=== PATIENT | female | born 1945 | race Caucasian/White ===

== ENCOUNTER 2016-08-12 12:39 | Inpatient (IN) | payer OTHER, MEDICARE ==
[~2016-08-12] VITALS: Ht 160 cm; Wt 57.2 kg
[2016-08-23] MEDS ORDERED: ALEN1TAB48 PO (11:34)
[2016-08-23] MEDS ORDERED: VITA200013 PO (11:34)
[2016-08-23] MEDS ORDERED: SIMV40TA PO (11:34)
[2016-08-23] MEDS ORDERED: CALC500T17 PO (11:34)
[2016-08-23] MEDS ORDERED: LEVO75TA3 PO (11:34)
[2016-09-07 05:44] LABS: BLOOD, URINE SMALL (NEG); GLUCOSE,URINE NEG (NEG); KETONE, URINE NEG (NEG); MUCUS URINE FEW /lpf (OCC); NITRITE,URINE NEG (NEG); SQUAMOUS EPITHELIAL CELL URINE <1 /hpf (0-5); URINE COLOR YELLOW (YELLW/STRAW)
[2016-09-07] MEDS ORDERED: VANCOMYCIN 1000 MG/NS 250 ML (for <70 kg) IV SCH ×2 (05:45)
[2016-09-07] MEDS ORDERED: ceFAZolin 2 GM PREMIX 50 ML IV SCH (05:45)
[2016-09-07] MEDS ORDERED: METOPROLOL TARTRATE 25 MG TAB PO PRN (05:45)
[2016-09-07] MEDS ORDERED: SODIUM CHLORID 0.9% 500 ML IV SCH (05:45)
[2016-09-07] MEDS ORDERED: INSULIN HUMAN REGULAR 1,000 UNITS/10 ML VIAL SQ PRN (05:45)
[2016-09-07] MEDS: LACTATED RINGER'S 1000 ML IV SCH (05:45)
[2016-09-07 05:52] VITALS: BP 140/82; PULSE 66; RESP 16; TEMP 97.8; O2SAT 98
[2016-09-07 06:34] LABS: COMMENT (UR) CULT NOT INDICATED; CULTURE IF INDICATED CULT NOT INDICATED
[2016-09-07] MEDS ORDERED: GENTAMICIN SULFATE 80 MG/2 ML VIAL ONE (06:50)
[2016-09-07] MEDS ORDERED: ceFAZolin INJ 1,000 MG VIAL ONE (07:01)
[2016-09-07] MEDS ORDERED: FAMOTIDINE 20 MG/2 ML VIAL ONE (07:02)
[2016-09-07] MEDS ORDERED: MIDAZOLAM HCL 2 MG/2 ML VIAL ONE (07:02)
[2016-09-07] MEDS ORDERED: ACETAMINOPHEN 1000 MG/100 ML VIAL IV ONE (07:02)
[2016-09-07] MEDS ORDERED: DEXAMETHASONE SOD PHOS 4 MG/ML VIAL ONE (07:02)
[2016-09-07] MEDS ORDERED: TRANEXAMIC ACID IV SCH (07:30)
[2016-09-07] MEDS ORDERED: SODIUM CHLORIDE 0.9% IV SCH (07:30)
[2016-09-07] MEDS ORDERED: EXPAREL PERI-ARTICULAR INJECTION (TOTAL VOL. 60 ML) P-ARTICULR SCH ×2 (07:30)
[2016-09-07] MEDS ORDERED: GENTAMICIN SULFATE 80 MG/2 ML VIAL IRRIGATION ONE (07:45)
[2016-09-07] MEDS ORDERED: NALOXONE HCL 0.4 MG/ML AMP IV PRN (09:15)
[2016-09-07] MEDS ORDERED: MORPHINE SULFATE 4 MG/ML INJ IV PUSH PRN (09:15)
[2016-09-07] MEDS ORDERED: SODIUM CHLORIDE 0.9% FLUSH 5 ML FLUSH IVF PRN (09:15)
[2016-09-07] MEDS ORDERED: ONDANSETRON HCL 4 MG/2 ML VIAL IVP PRN (09:15)
[2016-09-07] MEDS ORDERED: ACETAMINOPHEN/HYDROcodone 325 MG/10 MG TAB PO PRN (09:15)
[2016-09-07] MEDS ORDERED: Post-op Orders (for Pharmacy) MISC XX ONE (09:15)
--- NOTE | 2016-09-07 09:15 | PD.OP ---
cc: Patric Marks MD Operative Report Date of Surgery: Sep 07, 2016 Preoperative Diagnosis: Severe right hip osteoarthritis Postoperative Diagnosis: Procedure: Right total hip arthroplasty via anterior approach Anesthesia: Gen. Surgeon: Patric Marks Vba Developer(s): BERTHA Arango PA-C The surgical procedure was assisted by my physician elementary assistant teacher. My P.A. presence was necessary throughout this case for the manipulation and positioning of the surgical extremity. My P.A. was assisting me throughout the duration of this procedure. The skill set of a physician elementary assistant teacher was medically necessary to complete this procedure. During the surgical case the technical support specialist was working at the back table and the physician elementary assistant teacher was directly assisting me. Operation and Findings: PLAN OF ACTIVITY Weight bear as tolerated. DRAINS: 7-mm JAY drain. IMPLANTS USED DePuy Corail size 10 collared stem with a size [48] [place]boro Gription cup and a [32+1.5] ceramic Biolox ceramic head. DETAILS OF PROCEDURE: This patient has a long history of hip pain. Patient was found to have severe osteoarthritis. The patient had radiographic evidence of joint space narrowing with [id number] arthritis and osteophytes around the acetabulum as well as the femoral head. There was also some cystic changes. The patient failed conservative treatment with pain medications, anti-inflammatories, physical therapy, assistive devices including a cane, as well as therapeutic injection of the hip. Patient's hip arthritis was limiting his ability to ambulate and perform activities of daily living. The patient wished to proceed with surgery and informed consent was obtained. Operative site was marked. I discussed both posterior approach and anterior approach with the patient and decision was made for anterior approach. Patient was brought to OR and placed on OR table. IV sedation and general anesthesia was administered by anesthesiologist. Patient positioned on a Yelena table and was given IV antibiotics. Time-out procedure was performed. The hip and thigh were prepped with alcohol followed by Hibiclens. The thigh was draped in the usual sterile fashion. Clean Air Suite was used for this procedure. The procedure began with a 5-inch incision over the anterolateral thigh. Subcutaneous tissue was dissected with Bovie. The fascia over the tensa fasciae latae was incised. Care was taken to avoid injury to the lateral femoral cutaneous nerve. The tensor muscle was retracted laterally. Sartorius was retracted medially. Retractors were now placed. The reflected head of the rectus is now elevated. A capsulotomy was performed over the anterior head capsule. Sutures were placed to help retract the capsule. At this point the femoral head and neck were identified. With soft tissue protected, oscillating saw was used to make a cut through the femoral neck, the femoral head was now removed. At this point attention was turned to preparation of the acetabulum. The labrum was excised. The acetabulum was sequentially reamed up to size [48]. A Carrboro cup was now placed. Fluoroscopy was used to aid in identification of appropriate version. Cup was fully impacted and found to have excellent fit. Hole eliminator was now placed. The liner was now impacted into the cup. At this point the hip was externally rotated. A hook was placed around the proximal femur. The capsule was released off the lateral and medial femur. The hip was now extended and adducted. Retractors were placed around the proximal femur to allow for exposure. A box osteotome was used to remove the lateral cortex of the femoral neck. A broach was used to help lateralize the prosthesis. Canal finder was used to create a path down the canal. Next, the canal was sequentially broached up to size [10]. This was found to be an excellent fit. Calcar planer was placed. A standard head was placed, and the hip was reduced. The hip was found to have excellent stability with good range of motion. The leg lengths were measured under fluoroscopy and found to be equal compared to preoperatively. Trial broach was removed. The Corail stem was opened. Stem was fully impacted into the proximal femur in appropriate version. The femoral head was placed. The hip was again reduced. Fluoroscopy confirmed excellent alignment of prosthesis. The wound was thoroughly irrigated and capsule was closed with #1 Vicryl. The fascia over the tensor fasciae muscle was closed with #1 Vicryl, subcutaneous tissue was closed with 3-0 Vicryl and the skin was closed with alda and Dermabond skin closure. The capsule layers were injected with a mixture of saline and bupivicaine. Dressings were applied. The patient was transferred to Recovery Room in stable condition. Partic Marks MD Sep 07, 2016 09:15
[2016-09-07] MEDS ORDERED: HYDR-3366 PO (09:36)
[2016-09-07] MEDS ORDERED: XARE10TA PO (09:36)
[2016-09-07] MEDS ORDERED: fentaNYL CITRATE 250 MCG/5 ML AMP ONE (09:36)
--- NOTE | 2016-09-07 09:38 | HHI.FF ---
Face to Face Verification Diagnosis: (1) Status post right hip replacement Physical Therapy Gait training Hip: Total hip, Protocol: Right, Posterior hip precautions, Progress to weight bearing Right LE Weight Bearing: WB as tolerated Left LE Weight Bearing: WB as tolerated Nursing Dressing Changes: Daily dressing change, Xeroform (begin adding Xeroform daily starting 09/20/2016), Coverderm/Primapore I have seen patient Kathy Villatoro on 09/07/16. My clinical findings support the need for the requested home health care services because: Limited ability to care for self I certify that my clinical findings support that this patient is homebound because: Post-op weakness Abraham Bartholomew Jr. Sep 07, 2016 09:38
[2016-09-07] MEDS ORDERED: TRANEXAMIC ACID INJ 1,000 MG in SODIUM CHLORIDE 0.9% INJ 100 ML IV ONE (10:00)
[2016-09-07] MEDS: LACTATED RINGER'S 1000 ML INJ 1,000 ML IV SCH (10:00)
--- NOTE | 2016-09-07 10:22 | RADRPT ---
EXAM DATE/TIME: 09/07/2016 09:39 [facility] COMPARISON: No previous studies available for comparison. INDICATIONS : Post op left hip surgery. MEDICAL HISTORY : None. SURGICAL HISTORY : None. ENCOUNTER: Initial ACUITY: 1 day PAIN SCORE: 0/10 LOCATION: Bilateral hip and pelvis FINDINGS: A lateral view of the right hip with AP pelvis was obtained. Right total hip prosthesis in place. Al ignment within normal limits. No evidence of fracture. Surgical drain exchange alda noted. Right-s ided sacral neural stimulator noted. CONCLUSION: Postoperative appearance of right total hip prosthesis. Sampson Aguilera MD on September 07, 2016 at 10:19 Board Certified Radiologist. This report was verified electronically.
[2016-09-07] MEDS ORDERED: DO NOT ADM ANY ANTICOAGULANT DRUGS XX PRN (10:30)
[2016-09-07] MEDS: KETOROLAC TROMETHAMINE 30 MG/ML (IVP) VIAL IV PUSH SCH (11:05)
[2016-09-07 12:00] VITALS: BP 105/54; PULSE 77; RESP 16; TEMP 98; O2SAT 99
[2016-09-07] MEDS: ceFAZolin 2 GM PREMIX 50 ML IV SCH ×2 (12:34→18:16)
[2016-09-07] MEDS ORDERED: PROPOFOL 200 MG/20 ML AMP IV ONE (13:47)
[2016-09-07] MEDS ORDERED: ePHEDrine/NS 25 MG/5 ML SYR IV ONE (13:48)
[2016-09-07] MEDS ORDERED: LACTATED RINGER'S 1000 ML INJ 1,000 ML IV ONE (13:48)
[2016-09-07] MEDS ORDERED: ONDANSETRON HCL 4 MG/2 ML VIAL IV PUSH ONE (13:48)
[2016-09-07] MEDS ORDERED: PHENYLEPH/NS 1000 MCG/10 ML SYR IV ONE (13:48)
[2016-09-07] MEDS ORDERED: NEOSTIGMINE 3 MG/3 ML SYR IV ONE (13:48)
[2016-09-07 16:00] VITALS: BP 97/50; PULSE 80; RESP 16; TEMP 97.9; O2SAT 97
--- NOTE | 2016-09-07 16:09 | RADRPT ---
EXAM DATE/TIME: 09/07/2016 07:32 [facility] COMPARISON: No previous studies available for comparison. INDICATIONS : Right total hip replacement. MEDICAL HISTORY : None. SURGICAL HISTORY : None. ENCOUNTER: Initial ACUITY: 1 day PAIN SCORE: 10/10 LOCATION: Right hip. FINDINGS: Examination of the hip demonstrates total hip arthroplasty in satisfactory position. The alignment is anatomic. CONCLUSION: Post surgical changes as above. Nahum Bullard MD on September 07, 2016 at 16:07 Board Certified Radiologist. This report was verified electronically.
[2016-09-07] MEDS: VANCOMYCIN INJ 1,000 MG in SODIUM CHLOR 0.9% 250 ML INJ 250 ML IV SCH (18:16)
[2016-09-07 19:15] VITALS: BP 96/55; PULSE 77; RESP 17; TEMP 97.5; O2SAT 95
[2016-09-07 20:28] VITALS: O2SAT 96
[2016-09-07] MEDS: PRAVASTATIN SOD 80 MG TAB PO SCH (21:00)
[2016-09-07] MEDS: SODIUM CHLORIDE 0.9% FLUSH 5 ML FLUSH IVF SCH (21:04)
[2016-09-07] MEDS: CHLORHEXIDINE GLUCONATE 4% SOLN 120 ML BTL TOPICAL SCH (21:36)
[2016-09-08] MEDS: LACTATED RINGER'S 1000 ML IV SCH ×2 (00:20→21:58)
[2016-09-08] MEDS: KETOROLAC TROMETHAMINE 30 MG/ML (IVP) VIAL IV PUSH SCH ×3 (00:21→22:10)
[2016-09-08] MEDS: ceFAZolin 2 GM PREMIX 50 ML IV SCH (00:21)
[2016-09-08] MEDS: LACTATED RINGER'S 1000 ML INJ 1,000 ML IV SCH ×3 (00:22→20:59)
[2016-09-08 00:45] VITALS: BP 91/55; PULSE 72; RESP 16; TEMP 96.2; O2SAT 96
[2016-09-08 03:25] VITALS: BP 98/52; PULSE 70; RESP 16; TEMP 96.6; O2SAT 96
[2016-09-08] MEDS: VANCOMYCIN INJ 1,000 MG in SODIUM CHLOR 0.9% 250 ML INJ 250 ML IV SCH (05:44)
[2016-09-08] MEDS: ACETAMINOPHEN/HYDROcodone 325 MG/7.5 MG TAB PO PRN ×2 (05:45→19:48)
[2016-09-08] MEDS: LEVOTHYROXINE SODIUM 75 MCG TAB PO SCH (05:49)
[2016-09-08 05:55] LABS: HEMATOCRIT 25.8 % (35.0-46.0); REVIEW FLAG FINAL
--- NOTE | 2016-09-08 06:39 | PD.ORT.PN ---
Subjective Subjective Remarks Resting comfortably and is progressed extremely well since surgery Objective Vitals Vital Signs Date Time Temp Pulse Resp B/P Pulse Ox O2 Delivery O2 Flow Rate FiO2 09/08/16 03:25 96.6 70 16 98/52 96 09/08/16 00:45 96.2 72 16 91/55 96 09/07/16 20:28 96 21 09/07/16 19:15 97.5 77 17 96/55 95 09/07/16 18:55 Room Air 09/07/16 16:00 97.9 80 16 97/50 97 09/07/16 12:00 98.0 77 16 105/54 99 09/07/16 11:50 Nasal Cannula 2.00 09/07/16 10:45 97.4 77 12 97/50 98 Nasal Cannula 2 09/07/16 10:30 66 12 91/41 97 Nasal Cannula 3 09/07/16 10:15 69 12 89/45 95 Nasal Cannula 3 09/07/16 10:00 74 14 83/43 96 Nasal Cannula 3 09/07/16 09:45 88 14 93/49 98 Nasal Cannula 3 09/07/16 09:29 97.4 84 14 108/55 98 Nasal Cannula 3 I/O 09/07/16 09/07/16 09/07/16 09/08/16 09/08/16 09/08/16 07:00 15:00 23:00 07:00 15:00 23:00 Intake Total 2742 ml 1287 ml 1716 ml Output Total 780 ml 680 ml 1710 ml Balance 1962 ml 607 ml 6 ml Intake Oral 480 ml 960 ml IV Total 842 ml 807 ml 756 ml Other 1900 ml Output Urine Total 325 ml 650 ml 1700 ml Drainage Total 105 ml 30 ml 10 ml Estimated Blood Loss 350 ml # Bowel Movements 0 0 Result Diagram: 09/08/16 0500 Imaging Last 24 hours Impressions Hip and Pelvis X-Ray 09/07/16 0904 Signed Impressions: Service Date/Time: Wednesday, September 07, 2016 09:39 - CONCLUSION: Postoperative appearance of right total hip prosthesis. Sampson Aguilera MD Objective Remarks Right lower extremity: Clean dry dressings intact. Drain removed. Minimal swelling. No pain with knee or ankle range of motion. Distally intact sensation good capillary refills with strong dorsiflexion and plantar flexion foot Assessment & Plan Assessment and Plan Right total hip arthroplasty anterior approach POD 1 Physical therapy twice daily weightbearing as tolerated Daily dressing changes with Primapore and starting POD 10 and Xeroform daily Lovenox then convert to Xarelto after discharge Discharge to home with home health care tomorrow if cleared by physical therapy SCDs and Maycol walker Follow-up with Dr. Marks or PA in 2 weeks Abraham Bartholomew Jr. Sep 08, 2016 06:39
[2016-09-08 08:00] VITALS: BP 97/52; PULSE 81; RESP 18; TEMP 97.2; O2SAT 92
[2016-09-08] MEDS: CALCIUM CARBONATE 1.25 GM (CA 500 MG) TAB PO SCH (09:17)
[2016-09-08] MEDS: ENOXAPARIN SODIUM 40 MG/0.4 ML SYRINGE SQ SCH (09:17)
[2016-09-08] MEDS: SODIUM CHLORIDE 0.9% FLUSH 5 ML FLUSH IVF SCH ×2 (09:17→19:42)
[2016-09-08] MEDS: CHOLECALCIFEROL (VIT D3) 1000 UNIT TAB PO SCH (09:17)
[2016-09-08 12:00] VITALS: BP 97/46; PULSE 71; RESP 18; TEMP 96.5; O2SAT 100
[2016-09-08 16:50] VITALS: BP 98/44; PULSE 76; RESP 18; TEMP 97.2; O2SAT 99
[2016-09-08] MEDS: PRAVASTATIN SOD 80 MG TAB PO SCH (19:42)
[2016-09-08] MEDS: DOCUSATE SODIUM 100 MG CAP PO SCH (19:42)
[2016-09-08 19:45] VITALS: BP 105/47; PULSE 85; RESP 18; TEMP 97.7; O2SAT 96
[2016-09-08] MEDS: CHLORHEXIDINE GLUCONATE 4% SOLN 120 ML BTL TOPICAL SCH (21:58)
[2016-09-09 00:45] VITALS: BP 85/42; PULSE 76; RESP 17; TEMP 96.8; O2SAT 93
[2016-09-09] MEDS: LEVOTHYROXINE SODIUM 75 MCG TAB PO SCH (04:18)
[2016-09-09 04:30] VITALS: BP 89/49; PULSE 79; RESP 16; TEMP 96.4; O2SAT 93
[2016-09-09 04:32] VITALS: BP 98/54
--- NOTE | 2016-09-09 06:31 | PD.ORT.PN ---
Subjective Subjective Remarks POD 2 s/p right LINDSAY doing well. pain controlled. out of bed on her own and ambulating with a walker Objective Vitals Vital Signs Date Time Temp Pulse Resp B/P Pulse Ox O2 Delivery O2 Flow Rate FiO2 09/09/16 04:32 98/54 09/09/16 04:30 96.4 79 16 89/49 93 09/09/16 00:45 96.8 76 17 85/42 93 09/08/16 19:45 97.7 85 18 105/47 96 09/08/16 18:56 Room Air 09/08/16 16:50 97.2 76 18 98/44 99 09/08/16 12:00 96.5 71 18 97/46 100 09/08/16 08:00 97.2 81 18 97/52 92 I/O 09/08/16 09/08/16 09/08/16 09/09/16 09/09/16 09/09/16 07:00 15:00 23:00 07:00 15:00 23:00 Intake Total 1716 ml 960 ml 720 ml Output Total 1710 ml Balance 6 ml 960 ml 720 ml Intake Oral 960 ml 960 ml 720 ml IV Total 756 ml Output Urine Total 1700 ml Drainage Total 10 ml # Voids 3 3 # Bowel Movements 0 0 0 Result Diagram: 09/08/16 0500 Imaging Last 24 hours Impressions Hip and Pelvis X-Ray 09/07/16 0904 Signed Impressions: Service Date/Time: Wednesday, September 07, 2016 09:39 - CONCLUSION: Postoperative appearance of right total hip prosthesis. Sampson Aguilera MD Objective Remarks Right lower extremity: Clean dry dressings intact. Drain removed. Minimal swelling. No pain with knee or ankle range of motion. Distally intact sensation good capillary refills with strong dorsiflexion and plantar flexion foot Assessment & Plan Assessment and Plan Right total hip arthroplasty anterior approach POD 2 Physical therapy twice daily weightbearing as tolerated Daily dressing changes with Primapore and starting POD 10 and Xeroform daily Lovenox then convert to Xarelto after discharge Discharge to home with home health care today SCDs and Maycol walker Follow-up with Dr. Marks or PA in 2 weeks Danyel Campo Sep 09, 2016 06:31
--- NOTE | 2016-09-09 06:41 | HHI.DS ---
Discharge Summary Admission Date Sep 07, 2016 at 05:05 Discharge Date: Sep 09, 2016 Admitting Diagnosis Right Hip OA Diagnosis: (1) Status post right hip replacement Diagnosis: Principal Procedures Right LINDSAY - anterior CBC/BMP: 09/08/16 0500 Significant Findings Laboratory Tests Test 09/07/16 09/08/16 05:22 05:00 Urine Occult Blood SMALL (NEG) Urine Leukocyte Esterase MOD (NEG) Urine WBC 6 /hpf (0-5) Urine Mucus FEW /lpf (OCC) Hemoglobin 8.6 GM/DL (11.6-15.3) Hematocrit 25.8 % (35.0-46.0) PE at Discharge Right lower extremity: Clean dry dressings intact. Drain removed. Minimal swelling. No pain with knee or ankle range of motion. Distally intact sensation good capillary refills with strong dorsiflexion and plantar flexion foot Hospital Course Admitted on 09/07/16 for elective total hip replacement of right hip. Tolerated procedure well. Admitted to . Was out of bed POD 0 with therapy. Her pain was well controlled, hemodynamically stable, ambulating with therapy with minimal difficulty and fit for discharge home with home healthcare on POD 2. she will follow up with Dr Capps or RENEE in 2 weeks and will remain full weight bearing. Pt Condition on Discharge: Good Discharge Disposition: Disch w/ Home Health Serv Discharge Instructions Diet Instructions: As Tolerated, No Restrictions Activities You Can Perform: Full Weight Bearing Follow up Referrals: Orthopedics - 2 Weeks @ [facility] with Patric Capps MD Continued Medications: Calcium Carbonate (Calcium) 1,250 Mg Tab 1250 MG PO DAILY 1,250 mg calcium carbonate (500 mg elemental calcium) TAB Cholecalciferol (Vitamin D) 2,000 Unit Cap 1 CAP PO DAILY Levothyroxine (Levothyroxine) 75 Mcg Tab 75 MCG PO DAILY Thyroid #30 Ref 0 TAB Simvastatin (Simvastatin) 40 Mg Tab 40 MG PO HS Cholesterol Management #30 Ref 0 TAB Discontinued Medications: Alendronate (Alendronate) 70 Mg Tab 70 MG PO Q7D Osteporosis Treatment #4 Ref 0 TAB Danyel Campo Sep 09, 2016 06:41
[2016-09-09 07:46] VITALS: BP 102/50; PULSE 81; RESP 18; TEMP 99; O2SAT 96
[2016-09-09] MEDS: CHOLECALCIFEROL (VIT D3) 1000 UNIT TAB PO SCH (08:21)
[2016-09-09] MEDS: ENOXAPARIN SODIUM 40 MG/0.4 ML SYRINGE SQ SCH (08:21)
[2016-09-09] MEDS: SODIUM CHLORIDE 0.9% FLUSH 5 ML FLUSH IVF SCH (08:21)
[2016-09-09] MEDS: DOCUSATE SODIUM 100 MG CAP PO SCH (08:21)
[2016-09-09] MEDS: CALCIUM CARBONATE 1.25 GM (CA 500 MG) TAB PO SCH (08:21)
[2016-09-09] MEDS: ACETAMINOPHEN/HYDROcodone 325 MG/7.5 MG TAB PO PRN (08:21)
[2016-09-09 09:36] VITALS: O2SAT 94
== END 2016-09-09 11:22 | disposition home health service (06) | DRG 470 ==
LOC: HSDI 09-07 05:05 → N06A 09-07 11:15
PROVIDERS: ADMIT Orthopaedic Surgery Orthopaedic Trauma; ATTEND Orthopaedic Surgery Orthopaedic Trauma
PROC: 0SR904Z Replacement of Right Hip Joint with Ceramic on Polyethylene Synthetic Substitute, Open Approach (ICD-10-PCS; principal; 2016-09-07 07:06)
DX: M16.11 Unilateral primary osteoarthritis, right hip (principal); E03.9 Hypothyroidism, unspecified; E78.5 Hyperlipidemia, unspecified
CPT/HCPCS: 73501; 73502; 76000; 81001; 85014; 85018; 86850; 86900; 86901; C1776; C9290; J0131; J0690; J1100; J1580; J1650; J1885; J2250; J2370; J2405; J2710; J3010; J3370; J7050; J7120; L1830

== ENCOUNTER → 2016-08-23 | Outpatient (CLI) | payer OTHER ==
[~2016-08-23] MED LIST: ALEN1TAB48 PO; CALC500T17 PO; HYDR-3366 PO; LEVO75TA3 PO; SIMV40TA PO; VITA200013 PO; XARE10TA PO
== END ==
LOC: CPRE 11:18
PROVIDERS: ATTEND Orthopaedic Surgery Orthopaedic Trauma
DX: M79.609 Pain in unspecified limb (principal); Z79.01 Long term (current) use of anticoagulants; Z96.60 Presence of unspecified orthopedic joint implant